=== PATIENT | female | born 1965 | race Caucasian/White ===

== ENCOUNTER 2016-09-09 19:27 | Emergency (ER) | payer OTHER ==
[~2016-09-09 19:27] MED LIST: CYCL5TAB PO; HYDR-971 PO
[2016-09-09 19:56] VITALS: BP 145/97
[2016-09-09] MEDS ORDERED: HYDROCODONE/APAP 5/325MG TABLET. PO ONE (21:30)
--- NOTE | 2016-09-09 21:57 | PHYS DOC ---
Past Medical History Past Medical History: Hypothyroid Additional Past Medical Histor: chronic shoulder issues Past Surgical History: Other Additional Past Surgical Histo: RIGHT AHD LEFT SHOULDER SURGERY, Alcohol Use: None Drug Use: None Adult General Chief Complaint Chief Complaint: SHOULDER INJURY HPI HPI Patient is a 51 year old female who presents with moderate left shoulder pain that began today. 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 She states she's had a previous rotator cuff issues injury and surgery Review of Systems Review of Systems Constitutional: Denies fever or chills [] Eyes: Denies change in visual acuity, redness, or eye pain [] Musculoskeletal: Left shoulder pain Integument: Denies rash or skin lesions [] Neurologic: Denies headache, focal weakness or sensory changes [] Endocrine: Denies polyuria or polydipsia [] Current Medications Current Medications Current Medications Medications (Trade) Dose Ordered Sig/Lauren Start Time Stop Time Status Last Admin Dose Admin Acetaminophen/ Hydrocodone Bitart (Lortab 5/325) 2 tab 1X ONCE 09/09/16 21:30 09/09/16 21:31 DC 09/09/16 21:53 2 TAB Allergies Allergies Allergies Coded Allergies Type Severity Reaction Last Updated Verified No Known Drug Allergies 01/04/15 No Physical Exam Physical Exam Constitutional: Well developed, well nourished, no acute distress, non-toxic appearance. [] Skin: Warm, dry, no erythema, no rash. [] Back: No tenderness, no CVA tenderness. [] Extremities: Left shoulder with no obvious deformity. Old healed surgical incisions noted on the left shoulder. Tenderness throughout the left shoulder on exam. Patient unable to take the left shoulder through any range of motion. + 2 left radial pulse. Cap refill less than 2 seconds the left upper extremity. Sensation intact to the left upper extremity. Neurologic: Alert and oriented X 3, normal motor function, normal sensory function, no focal deficits noted. [] Psychologic: Affect normal, judgement normal, mood normal. [] Current Patient Data Vital Signs Vital Signs Date Time Temp Pulse Resp B/P Pulse Ox O2 Delivery O2 Flow Rate FiO2 09/09/16 21:53 Room Air 09/09/16 19:56 97.9 96 20 145/97 100 97.9 EKG EKG [] Radiology/Procedures Radiology/Procedures [] Course & Med Decision Making Course & Med Decision Making Pertinent Labs and Imaging studies reviewed. (See chart for details) Patient is in the ED with left shoulder pain. Left shoulder x-ray as interpreted by Dr. Joseph was noted for slight AC separation. Patient was discharged with instructions to follow-up with her own orthopedic doctor on Monday. She goes to [facility] orthopedic [facility]. Dragon Disclaimer Dragon Disclaimer This electronic medical record was generated, in whole or in part, using a voice recognition dictation system. Departure Departure Impression: Primary Impression: AC separation Disposition: HOME, SELF-CARE Condition: STABLE Referrals: NAVDEEP SAPP (PCP) Follow-up with your primary care orthopedic doctor on Monday Patient Instructions: Shoulder Pain Additional Instructions: You were seen for shoulder pain. Please follow-up with your orthopedic doctor on Monday. Scripts Hydrocodone/Apap 5-325 (Keiser 5-325 Tablet)1 Each Tablet1-2 Tab PO Q4-6HRS #14 TAB Prov:BRENDA COFFEY APRN 09/09/16 Problem Qualifiers Primary Impression: AC separation Encounter type: initial encounter Laterality: left Qualified Code: S43.102A - Unspecified dislocation of left acromioclavicular joint, initial encounter BRENDA COFFEY APRN Sep 09, 2016 21:57
[2016-09-09] MEDS ORDERED: HYDR-971 PO (22:01)
--- NOTE | 2016-09-10 08:25 | RAD ---
Indication injury, pain. AP and Y views of the left shoulder were obtained. No prior imaging targeted to the shoulder is available. There is irregularity involving the distal clavicle having a chronic appearance and similar to an examination 03/06/2016. An acute bony finding is not seen. IMPRESSION: Chronic changes at the AC joint. No acute bony finding
== END 2016-09-09 22:04 | disposition home or self-care (01) ==
LOC: ER 19:27
DX: S43.102A Unspecified dislocation of left acromioclavicular joint, initial encounter (principal); E03.9 Hypothyroidism, unspecified; Z98.890 Other specified postprocedural states; W18.49XA Other slipping, tripping and stumbling without falling, initial encounter; Y93.89 Activity, other specified; Y92.89 Other specified places as the place of occurrence of the external cause; Y99.8 Other external cause status
CPT/HCPCS: 73030; 99284

== ENCOUNTER → 2016-10-25 | Outpatient (CLI) | payer OTHER ==
--- NOTE | 2016-10-25 10:05 | KCIC ---
PROCEDURE MRI cervical spine without contrast. HISTORY Cervicalgia, progressive left shoulder and scapula and neck pain for a few weeks TECHNIQUE Multiplanar, multi sequential non contrast MR imaging was performed of the cervical spine. COMPARISON None FINDINGS There is some motion degradation. Cervical vertebral body stature and AP alignment are maintained. Cervical cord caliber is within normal limits without focal signal abnormality. There is moderate to severe degenerative disc disease C6-7 and to a somewhat lesser degree at C5-C6 and minimally at C4-5. There is no significant abnormality of the cervical medullary junction. There is trace C6-7 endplate edema likely reactive/degenerative in etiology. Not fully included, there is moderate to severe mucosal thickening of the visualized sphenoid sinus. C2-3: Neural foramina and spinal canal are adequate. C3-C4: There is a posterior extrusion extending slightly above and below the intervertebral disc space, indentation upon the ventral thecal sac greatest centrally with narrowing of the central canal to 7-8 millimeters. There is focal effacement of ventral subarachnoid space centrally. Extrusion measures up to approximately 3 millimeters AP by 11 millimeters cc by 6 millimeters transverse. Neural foramina are adequate. C4-5: There is a shallow protrusion in the far right lateral recess. Central canal is borderline 10 millimeters, mild narrowing of the far right lateral recess. Neural foramina are adequate. C5-6: There is a broad posterior disc osteophyte complex and bulge. Central canal is minimally narrowed to 8-9 millimeters. There is uncovertebral degenerative change bilaterally. There is mild to moderate right and moderate to severe left neural foramina compromise. C6-7: There is minimal disc osteophyte complex and bulge. Central canal is minimally narrowed to 8-9 millimeters. There is uncovertebral degenerative change bilaterally. There is moderate to severe right and overall moderate left neural foramina compromise. C7-T1: Spinal canal and the neural foramina are adequate. IMPRESSION 1. There is mild spinal stenosis as described C3-4, C5-C6, C6-7, and mild narrowing of the far right lateral recess C4-5. 2. There is multilevel uncovertebral degenerative change which contributes to neural foramina compromise as stated most notable left greater than right at C5-C6 and right greater than left at C6-7. 3. There is multilevel cervical degenerative disc disease greatest C5-C6 and C6-7 and to a lesser degree at C4-5. There is spondylosis greatest at C5-C6 and C6-7. 4. Not fully included, there is moderate to severe mucosal thickening of the visualized sphenoid sinus. Electronically signed by: Darrion Sinclair MD (October 25, 2016 10:04:35)
--- NOTE | 2016-10-25 11:34 | KCIC ---
PROCEDURE MR of the left shoulder HISTORY Left shoulder pain. Prior surgery in 2013. TECHNIQUE Routine multiplanar sequences are obtained. COMPARISON None FINDINGS The acromioclavicular joint is postoperative. No acute findings in the area. There is mild motion degradation Thickening and hyperintense signal within the supraspinatus and infra spinatus tendons, compatible with tendinosis. No measurable rotator cuff tear.. No significant subdeltoid bursal effusion. Mild signal at the base of the posterosuperior labrum. Examination somewhat limited by the motion but this is a possible tear. No acute articular cartilage defect. No significant joint effusion. The biceps tendon is mildly thickened with signal compatible with tendinosis. Small nodular and tubular lesions identified within the proximal humerus may be vascular, but are thought to be benign. No aggressive bone destruction. No acute fracture. No acute soft tissue injury. No aggressive bone destruction or acute fracture. IMPRESSION 1. Rotator cuff tendinosis without measurable tear. 2. Suspect small tear of the posterosuperior labrum, but note there is motion degradation on the exam. Electronically signed by: Jesus Larose MD (October 25, 2016 11:33:51)
== END | disposition home or self-care (01) ==
LOC: KCIC MRI 08:15
PROVIDERS: ATTEND Nurse Practitioner Family
DX: M25.512 Pain in left shoulder (principal); M54.2 Cervicalgia
CPT/HCPCS: 72141; 73221

== ENCOUNTER 2017-02-18 23:32 | Emergency (ER) | payer OTHER ==
[~2017-02-18] VITALS: Ht 157.5 cm; Wt 65.8 kg
[2017-02-18 23:35] VITALS: BP 136/83
--- NOTE | 2017-02-19 00:44 | PHYS DOC ---
Past Medical History Past Medical History: Hypothyroid Additional Past Medical Histor: chronic shoulder issues, chronic back pain Past Surgical History: Other Additional Past Surgical Histo: Bilateral Shoulder Surgeries Alcohol Use: None Drug Use: None Adult General Chief Complaint Chief Complaint: BACK PAIN - NO INJURY HPI HPI Patient is a 51 year old female who presents with complaint of low back pain. The patient states that her symptoms started worsening earlier today. The patient states that she has had history of chronic back pain, however the patient states that she has not had pain like this in the past. The patient's history is somewhat confusing however is patient states that she has had an epidural in her low back for treatment of chronic back pain, however when asked what part of her back was affected, the patient states her cervical and upper thoracic spine. Patient states that she is having pain all throughout her back both upper and lower. Patient also states that pain radiates into both of her legs down to her feet. The patient has tried Lidoderm patch and has taken naproxen and Flexeril at home with no relief in symptoms. Patient states that she follows with pain management at [facility]. Patient states that she has Jean which she takes at home. Patient admitted that she also took this medication but has not gotten any relief of symptoms. Patient rates her pain currently is 10 out of 10. The patient states that she cannot sit at this time as it is causing worsening symptoms and is currently standing and holding her significant other during interview. The patient is also concerned that she may have a urinary tract infection as she feels that the pain is in "both kidneys." Patient denies loss of bowel or bladder control or saddle anesthesia. Review of Systems Review of Systems Constitutional: Denies fever or chills [] Eyes: Denies change in visual acuity, redness, or eye pain [] HENT: Denies nasal congestion or sore throat [] Respiratory: Denies cough or shortness of breath [] Cardiovascular: Denies chest pain or edema[] GI: Denies abdominal pain, nausea, vomiting, bloody stools or diarrhea [] : Denies dysuria or hematuria [] Musculoskeletal: Diffuse back pain[] Integument: Denies rash or skin lesions [] Neurologic: Denies headache, focal weakness or sensory changes [] Current Medications Current Medications Current Medications Medications (Trade) Dose Ordered Sig/Lauren Start Time Stop Time Status Last Admin Dose Admin Cefpodoxime Proxetil (Vantin) 200 mg 1X ONCE 02/19/17 02:30 02/19/17 02:31 DC 02/19/17 02:30 200 MG Dexamethasone Sodium Phosphate (Decadron) 16 mg 1X ONCE 02/19/17 01:00 02/19/17 01:01 DC 02/19/17 00:43 16 MG Hydromorphone HCl (Dilaudid) 1 mg 1X ONCE 02/19/17 01:00 02/19/17 01:01 DC 02/19/17 00:45 1 MG Allergies Allergies Allergies Coded Allergies Type Severity Reaction Last Updated Verified No Known Drug Allergies 01/04/15 No Physical Exam Physical Exam Constitutional: Alert, afebrile, appears in moderate to severe discomfort. [] HENT: Normocephalic, atraumatic, bilateral external ears normal, oropharynx moist, no oral exudates, nose normal. [] Eyes: PERRLA, EOMI, conjunctiva normal, no discharge. [] Neck: Normal range of motion, no tenderness, supple, no stridor. [] Cardiovascular:Heart rate regular rhythm, no murmur [] Lungs & Thorax: Bilateral breath sounds clear to auscultation [] Abdomen: Bowel sounds normal, soft, no tenderness, no masses, no pulsatile masses. [] Skin: Warm, dry, no erythema, no rash. [] Back: No midline tenderness, diffuse paraspinous muscle tenderness throughout thoracic and lumbar spine, tenderness to palpation over bilateral SI joints, patient remained standing and did not lay down to have straight leg test. [] Extremities: No tenderness, no cyanosis, no clubbing, ROM intact, no edema. [] Neurologic: Alert and oriented X 3, normal motor function, normal sensory function, no focal deficits noted. [] Current Patient Data Vital Signs Vital Signs Date Time Temp Pulse Resp B/P (MAP) Pulse Ox O2 Delivery O2 Flow Rate FiO2 02/18/17 23:35 97.8 87 20 100 Room Air 97.8 Lab Values Laboratory Tests Test 02/19/17 00:40 Urine Collection Type Unknown Urine Color Yellow Urine Clarity Turbid Urine pH 7.5 Urine Specific [place] 1.020 Urine Protein Negative mg/dL (NEG-TRACE) Urine Glucose (UA) Negative mg/dL (NEG) Urine Ketones (Stick) Negative mg/dL (NEG) Urine Blood Negative (NEG) Urine Nitrite Positive (NEG) Urine Bilirubin Negative (NEG) Urine Urobilinogen Dipstick 0.2 mg/dL (0.2 mg/dL) Urine Leukocyte Esterase Moderate (NEG) Urine RBC 3-5 /HPF (0-2) Urine WBC 1-4 /HPF (0-4) Urine Squamous Epithelial Cells Many /LPF Urine Amorphous Sediment Present /HPF Urine Bacteria Many /HPF (0-FEW) Microbiology 02/19/17 Urine Culture - Final, Complete 02/19/17 Urine Culture Result 1 (ANTHONY) - Final, Complete 02/19/17 Antimicrobic Susceptibility - Final, Complete EKG EKG Not performed[] Radiology/Procedures Radiology/Procedures Not performed[] Course & Med Decision Making Course & Med Decision Making Pertinent Labs and Imaging studies reviewed. (See chart for details) Patient was given IM Dilaudid in the emergency department with improvement in pain symptoms. UA shows evidence of urinary tract infection. Due to pain and in the flanks, patient will be treated for acute pyelonephritis. Patient's vital signs are normal at this time and patient does not appear toxic or septic. The patient will be started on Vantin twice a day with first dose given in the emergency department. Advised follow-up with primary doctor in 3 days for reevaluation and return to emergency department for any worsening symptoms. Patient was understanding and in agreement with treatment plan. Dragon Disclaimer Dragon Disclaimer This electronic medical record was generated, in whole or in part, using a voice recognition dictation system. Departure Departure Impression: Primary Impression: Pyelonephritis Additional Impression: Acute exacerbation of chronic low back pain Disposition: HOME, SELF-CARE Condition: IMPROVED Referrals: NAVDEEP SAPP (PCP) Patient Instructions: Chronic Back Pain, Pyelonephritis, Adult Additional Instructions: Follow-up in 3 days with your primary doctor for reevaluation. Return to emergency department for any worsening symptoms. Problem Qualifiers CYNDI CASANOVA MD Feb 19, 2017 00:44
[2017-02-19 00:55] LABS: BILIRUBIN,URINE NEGATIVE (NEG); GLUCOSE,URINE NEGATIVE (NEG); NITRITE,URINE POSITIVE (NEG); PH,URINE 7.5; PROTEIN,URINE NEGATIVE (NEG-TRACE); UROBILINOGEN,URINE 0.2 mg/dL (0.2 mg/dL)
[2017-02-19] MEDS ORDERED: DEXAMETHASONE SOD PHOS 20 MG/5 ML VIAL. IM ONE (01:00)
[2017-02-19] MEDS ORDERED: HYDROmorphone 2 MG/ML VIAL IM ONE (01:00)
[2017-02-19 01:10] LABS: BACTERIA,URINE MANY /HPF (0-FEW); SQUAMOUS EPITHELIAL CELL,UR MANY /LPF
[2017-02-19] MEDS ORDERED: CEFP200T PO (02:15)
[2017-02-19] MEDS ORDERED: CEFPODOXIME PROXETIL 100 MG TABLET. PO ONE (02:30)
[2017-02-21] MEDS ORDERED: LEVOTHYROXINE (03:59)
[2017-02-22] MEDS ORDERED: OXYC1TAB7 PO (11:23)
[2017-02-22] MEDS ORDERED: TIZA4TAB PO (11:46)
== END 2017-02-19 02:33 | disposition home or self-care (01) ==
LOC: ER 23:43
DX: G89.29 Other chronic pain (principal); N12 Tubulo-interstitial nephritis, not specified as acute or chronic; M54.5 Low back pain; E03.9 Hypothyroidism, unspecified
CPT/HCPCS: 81001; 87086; 96372; 99284; J1100; J1170

== ENCOUNTER → 2017-03-17 | Outpatient (CLI) | payer OTHER ==
[2017-02-22 14:35] VITALS: BP 115/71
[~2017-03-17] MED LIST changes: +CEFP200T PO; +LEVOTHYROXINE; +OXYC1TAB7 PO; +TIZA4TAB PO
--- NOTE | 2017-03-17 18:04 | KCIC ---
Bilateral digital screening mammograms: Reason for examination: Routine screening. Comparison is made to previous study dated 05/07/2014. The skin and nipples show no abnormalities. No abnormal axillary lymph nodes are seen. The breast parenchyma is extremely dense. (Breast density: Category D.) There appears to be some new nodularity posterior superiorly in the right breast on oblique view. These may represent intramammary lymph nodes. There is also suggestion of some nodularity at approximately the 9:00 position posteriorly in the right breast. Recommend further evaluation with additional cone compression views and ultrasound. There are no other dominant masses, suspicious calcifications or architectural distortion. Impression: New nodularity suggested in the right breast. Recommend further evaluation with additional cone compression views and ultrasound. Your patient's mammogram demonstrates that she has dense breast tissue (breast density category C or D), which could hide abnormalities, and if she has other risk factors for breast cancer that have been identified, she might benefit from supplemental screening tests that may be suggested by you as her ordering physician. Dense breast tissue, in and of itself, is a relatively common condition. Therefore, this information is not provided to cause undue concern, but rather to raise your awareness and to promote discussion with your patient regarding the presence of other risk factors, in addition to dense breast tissue. Your patient's mammography results will be sent to her. BI-RAD Category 0: Incomplete. Additional imaging is recommended. "Our facility is accredited by the [employer] Mammography Program." This patient's information has been entered into a reminder system for the patient to be notified with the results of her examination and a target date for the next mammogram. Electronically signed by: Kimberley Mata MD (03/17/2017 6:01 PM) [id number]
== END | disposition home or self-care (01) ==
LOC: KCIC MAMMO 13:19
PROVIDERS: ATTEND Nurse Practitioner Family
DX: Z12.31 Encounter for screening mammogram for malignant neoplasm of breast (principal)
CPT/HCPCS: G0202; 77067

== ENCOUNTER → 2017-04-26 | Outpatient (CLI) | payer OTHER ==
[2017-02-22 14:35] VITALS: BP 115/71
--- NOTE | 2017-04-26 09:51 | KCIC ---
History: asymmetric tissue density upper right breast on the March 08, 2017 mammogram. Technique: The following digital mammographic additional views were obtained: xcc view spot MLO . Computer aided detection was utilized with iCAD Second Look 7.2-H Comparison: May 07, 2014 Findings: There is at least one asymmetric tissue density which persists on the spot MLO view but is not well-seen on the cc view. The density does correspond with a small simple cyst on ultrasound. Impression: Probable small simple cyst causing the mammographic abnormality. Recommend a 6 month follow-up right mammogram to assess stability. BI-RADS Category 3: Probably Benign. These results were given to the patient in person. Patient information is entered into the [facility] reminder system using [employer] with a target due date for the next screening mammogram. The patient will receive a reminder. A mammogram does not have 100% sensitivity and therefore a negative imaging study should not delay further work up of a suspicious abnormality. "Our facility is accredited by the [employer] Mammography Program." Electronically signed by: David Lopez III, MD (04/26/2017 9:48 AM) [id number]
--- NOTE | 2017-04-26 09:52 | KCIC ---
Right breast diagnostic ultrasound HISTORY: Asymmetric tissue density on mammogram Sonographic examination of the upper outer right breast was performed and multiple static images were obtained. There is dense fibroglandular tissue. There is a simple cyst in the 10:00 right breast 2 cm nipple and measures 10 x 8 x 5 mm and corresponds with the mammographic abnormality. There is no suspicious findings. IMPRESSION: Simple cyst and dense fibroglandular tissue. Recommend a 6 month follow-up right mammogram to assess stability. These results were given to the patient in person. BI-RADS Category 3: Probably Benign. Electronically signed by: David Lopez III, MD (04/26/2017 9:49 AM) [id number]
== END | disposition home or self-care (01) ==
LOC: KCIC MAMMO 08:39
PROVIDERS: ATTEND Nurse Practitioner Family
DX: N60.01 Solitary cyst of right breast (principal); F17.200 Nicotine dependence, unspecified, uncomplicated
CPT/HCPCS: 76641; G0206; 77065

== ENCOUNTER 2017-12-20 19:56 | Emergency (ER) | payer OTHER ==
[2017-12-20 21:18] LABS: ANION GAP 3 (6-14); BLOOD UREA NITROGEN 9 mg/dL (7-20); CALCIUM 8.7 mg/dL (8.5-10.1); CARBON DIOXIDE 29 mmol/L (21-32); CHLORIDE 103 mmol/L (98-107); CREATININE 0.8 mg/dL (0.6-1.0); GLUCOSE 101 mg/dL (70-99); SODIUM 135 mmol/L (136-145)
[2017-12-20] MEDS: IV NORMAL SALINE 1000ML BAG 1,000 ML IV (21:21)
[2017-12-20] MEDS: ONDANSETRON PF 4 MG/2 ML VIAL. IV (21:21)
[2017-12-20 21:38] LABS: BILIRUBIN,URINE NEGATIVE (NEG); CLARITY,URINE CLOUDY; COLOR,URINE YELLOW; GLUCOSE,URINE NEGATIVE (NEG); NITRITE,URINE NEGATIVE (NEG); PH,URINE 6.5; PROTEIN,URINE NEGATIVE (NEG-TRACE)
[2017-12-20 21:49] LABS: BACTERIA,URINE MANY /HPF (0-FEW); RBC,URINE OCC /HPF (0-2); SQUAMOUS EPITHELIAL CELL,UR MANY /LPF
[2017-12-20] MEDS: IV NORMAL SALINE 500ML BAG 500 ML IV (22:46)
[2017-12-20] MEDS: diphenhydrAMINE 50 MG/ML VIAL IVP (22:46)
[2017-12-20] MEDS: PROCHLORPERAZINE 10 MG/2 ML VIAL. IV (22:47)
== END 2017-12-21 00:50 | disposition home or self-care (01) ==
LOC: ER 12-21 00:50
DX: R11.2 Nausea with vomiting, unspecified (principal); R19.7 Diarrhea, unspecified; G89.29 Other chronic pain; E03.9 Hypothyroidism, unspecified; Z98.51 Tubal ligation status
CPT/HCPCS: 36415; 80048; 81001; 96361; 96374; 96375; 99284; J0780; J1200; J2405; J7030; J7040

== ENCOUNTER 2020-08-25 14:46 | Inpatient (IN) | payer OTHER ==
[~2020-08-25] VITALS: Ht 157.5 cm; Wt 74.4 kg
[~2020-08-25 14:46] MED LIST changes: +HYDR-3164 PO; -HYDR-971 PO; +METO10TA81 PO; +NITR100C62 PO; -TIZA4TAB PO; +TIZA4TAB2 PO
[2020-08-25] MEDS ORDERED: VANCOMYCIN 1.75 GM in IV NORMAL SALINE 500ML BAG 500 ML IV ONE (16:00)
[2020-08-25] MEDS ORDERED: fentaNYL PF VIAL 100 MCG/2 ML VIAL IVP ONE (16:00)
[2020-08-25] MEDS ORDERED: IV NORMAL SALINE 1000ML BAG 1,000 ML IV SCH (16:00)
[2020-08-25] MEDS ORDERED: VANCOMYCIN PER PHARMACY MC ONE (16:00)
--- NOTE | 2020-08-25 16:15 | PHYS DOC ---
Past Medical History Past Medical History: Hypertension, Hypothyroid Additional Past Medical Histor: chronic shoulder issues, chronic back pain Past Surgical History: Tubal ligation, Other Additional Past Surgical Histo: Bilateral Shoulder Surgeries, WRIST SX, Endometrial ablation, elbow Smoking Status: Current Every Day Smoker Alcohol Use: None Drug Use: None General Adult EDM: Chief Complaint: HAND PROBLEM HPI: HPI: Patient is a 55 year old female who presents with for the last 2 to 3 days she has been trying to clear female locus plants and has gotten stuck several times bilateral hands. She now has severe pain and open weeping puncture wounds from the plant. Patient has 4 wounds to the left and one wound to the right hand. She states her hands are throbbing and rates the pain a 10 out of 10. Patient denies fever, numbness or tingling, focal weakness or skin color change, coolness of the extremity. She does state that she has been using peroxide and Neosporin to the areas. Patient has a history of hypertension and hypothyroidism. She is also a smoker. Review of Systems: Review of Systems: Constitutional: Denies fever or chills. [] Eyes: Denies change in visual acuity. [] HENT: Denies nasal congestion or sore throat. [] Respiratory: Denies cough or shortness of breath. [] Cardiovascular: Denies chest pain or edema. [] GI: Denies abdominal pain, nausea, vomiting, bloody stools or diarrhea. [] : Denies dysuria. [] Musculoskeletal: Denies back pain. +Bilateral hand joint pain. [] Integument: Denies rash. + 4 abscesses with erythema to left hand and one abscess with erythema and swelling to right hand [] Neurologic: Denies headache, focal weakness or sensory changes. [] Endocrine: Denies polyuria or polydipsia. [] Lymphatic: Denies swollen glands. [] Psychiatric: Denies depression or anxiety. [] Heart Score: C/O Chest Pain: N/A Risk Factors: Risk Factors: DM, Current or recent (<one month) smoker, HTN, HLP, family history of CAD, obesity. Risk Scores: Score 0 - 3: 2.5% MACE over next 6 weeks - Discharge Home Score 4 - 6: 20.3% MACE over next 6 weeks - Admit for Clinical Observation Score 7 - 10: 72.7% MACE over next 6 weeks - Early Invasive Strategies Current Medications: Current Medications Medications (Trade) Dose Ordered Sig/Lauren Start Time Stop Time Status Last Admin Dose Admin Fentanyl Citrate (Fentanyl 2ml Vial) 50 mcg 1X ONCE 08/25/20 16:00 08/25/20 16:01 DC Sodium Chloride 1,000 ml @ 1,000 mls/hr Q1H 08/25/20 16:00 08/25/20 16:59 Vancomycin HCl (Vanco Per Pharmacy) 1 each 1X ONCE 08/25/20 16:00 08/25/20 16:01 DC Vancomycin HCl 1.75 gm/Sodium Chloride 500 ml @ 250 mls/hr 1X ONCE 08/25/20 16:00 08/25/20 17:59 Allergies: Allergies: Allergies Coded Allergies Type Severity Reaction Last Updated Verified No Known Drug Allergies 01/04/15 No Physical Exam: PE: Constitutional: Well developed, well nourished, no acute distress, non-toxic appearance. [] HENT: Normocephalic, atraumatic, bilateral external ears normal, oropharynx moist, no oral exudates, nose normal. [] Eyes: PERRLA, EOMI, conjunctiva normal, no discharge. [] Neck: Normal range of motion, no tenderness, supple, no stridor. [] Cardiovascular:Heart rate regular rhythm, no murmur [] Lungs & Thorax: Bilateral breath sounds clear to auscultation [] Abdomen: Bowel sounds normal, soft, no tenderness, no masses, no pulsatile masses. [] Skin: Warm, dry, billateral hands erythema, no rash. Left hand with 4 open purulent draining reddened abscesses and right hand with 1 [] Back: No tenderness, no CVA tenderness. [] Extremities: Lateral hands tenderness, no cyanosis, no clubbing, right lateral hand ROM intact but limited due to swelling, 3+ edema. [] Neurologic: Alert and oriented X 3, normal motor function, normal sensory function, no focal deficits noted. [] Psychologic: Affect normal, judgement normal, mood normal. [] Current Patient Data: Vital Signs: Vital Signs Date Time Temp Pulse Resp B/P (MAP) Pulse Ox O2 Delivery O2 Flow Rate FiO2 08/25/20 15:10 98.2 95 18 135/83 (100) 98 Room Air 98.2 EKG: EKG: [] Radiology/Procedures: Radiology/Procedures: [] Impression: [facility] [address] [place] [address] IMAGING REPORT Signed PATIENT: BHAVANA DU ACCOUNT: [id number] : 1965 LOCATION: ER AGE: 55 SEX: F EXAM STATUS: REG ER ORD. PHYSICIAN: JONATHAN HAINES APRN REASON: hands swollen and infected PROCEDURE: CT UPPER EXTREMITY BILAT W/ CT EXTREMITY UPPER W CONT SARAH History: Reason: hands swollen and infected / Spl. Instructions: [id number] 75ML / History: Comparison: None. Technique: CT of bilateral distal upper extremities with intravenous contrast. Coronal and sagittal reconstructions were performed. Exposure: One or more of the following individualized dose reduction techniques were utilized for this examination: 1. Automated exposure control 2. Adjustment of the mA and/or kV according to patient size 3. Use of iterative reconstruction technique. Findings: Left upper extremity: Mild dorsal hand soft tissue swelling with overlying skin thickening. No loculated fluid collection to suggest abscess. Normal alignment. No fracture. Mild tendinous structures are grossly intact. Polyarticular distal interphalangeal degenerative changes. Right upper extremity: Normal alignment. No fracture. No loculated fluid collection to suggest abscess. Polyarticular distal phalangeal degenerative changes. Myotendinous structures are grossly intact. Impression: 1. Mild left dorsal hand soft tissue swelling with overlying skin thickening. No evidence of abscess. If persistent clinical concern in either extremity recommend targeted ultrasound or MRI to further evaluate. Electronically signed by: Grabiel Faria DO (08/25/2020 6:12 PM) [facility] DICTATED and SIGNED BY: GRABIEL FARIA DO DATE: 08/25/20 [id number] 0 Course & Med Decision Making: Course & Med Decision Making Pertinent Labs and Imaging studies reviewed. (See chart for details) See HPI. Bilateral hands are 2-3+ swollen including fingers. Patient can make a slight fist bilaterally but the swelling is limiting range of motion of her fingers. Bilateral hands are reddened with the right arm contain a red streak up the mid forearm. She is afebrile. Radial pulses are strong and present. Cap refill less than 2 seconds. Sensations are intact. Patient accepted by Dr Will. Patient is given fluids, Vancomycin and Zosyn. Cammie arteaga states that after the CT she began feeling throat tightness and nasal congestion. Uvula is midline and nonswollen. No hives or rash. Denies itching. No angio edema. [] Dragon Disclaimer: Dragon Disclaimer: This electronic medical record was generated, in whole or in part, using a voice recognition dictation system. Departure Departure Impression: Primary Impression: Cellulitis of hand Additional Impression: Wound infection Disposition: ADMITTED INPT THIS HOSP Admitting Physician: GABRIELE Condition: STABLE Referrals: NAVDEEP SAPP (PCP) JONATHAN HAINES APRN Aug 25, 2020 16:15
[2020-08-25 16:37] LABS: BASO # 0.1 x10^3/uL (0.0-0.2); BASO % 1 % (0-3); EOS # 0.1 x10^3/uL (0.0-0.7); EOS % 1 % (0-3); HEMATOCRIT 40.9 % (36.0-47.0); HEMOGLOBIN 14.1 g/dL (12.0-15.5); LYMPH # 1.6 x10^3/uL (1.0-4.8); LYMPH % 14 % (24-48); MEAN CORPUSCULAR HEMOGLOBIN 32 pg (25-35); MEAN CORPUSCULAR HGB CONC 34 g/dL (31-37); MEAN CORPUSCULAR VOLUME 94 fL (79-100); MONO % 8 % (0-9); NEUT # 8.9 x10^3/uL (1.8-7.7); NEUT % 76 % (31-73); PLATELET COUNT 314 x10^3/uL (140-400); RED BLOOD COUNT 4.36 x10^6/uL (3.50-5.40); RED CELL DISTRIBUTION WIDTH 12.5 % (11.5-14.5); WHITE BLOOD COUNT 11.7 x10^3/uL (4.0-11.0)
[2020-08-25] MEDS ORDERED: PIPERACILLIN/TAZOBACTAM 3.375 GM in IV NORMAL SALINE 50ML 50 ML IV ONE (16:45)
[2020-08-25 16:54] LABS: CALCIUM 9.2 mg/dL (8.5-10.1); CREATININE 0.9 mg/dL (0.6-1.0); GFR 64.8
[2020-08-25 17:00] LABS: ALBUMIN 3.7 g/dL (3.4-5.0); ALBUMIN/GLOBULIN RATIO 0.9 (1.0-1.7); C-REACTIVE PROTEIN 7.8 mg/L (0-3.3); TOTAL BILIRUBIN 0.5 mg/dL (0.2-1.0); TOTAL PROTEIN 7.8 g/dL (6.4-8.2)
[2020-08-25] MEDS ORDERED: IOHEXOL 300 MG/ML 100ML VIAL. IV ONE (17:00)
[2020-08-25] MEDS ORDERED: CONTRAST GIVEN. MC PRN (17:15)
[2020-08-25] MEDS ORDERED: MORPHINE SULFATE 4 MG/ML VIAL. IV ONE (17:45)
--- NOTE | 2020-08-25 18:15 | RAD ---
CT EXTREMITY UPPER W CONT SARAH History: Reason: hands swollen and infected / Spl. Instructions: [id number] 75ML / History: Comparison: None. Technique: CT of bilateral distal upper extremities with intravenous contrast. Coronal and sagittal r econstructions were performed. Exposure: One or more of the following individualized dose reduction techniques were utilized for thi s examination: 1. Automated exposure control 2. Adjustment of the mA and/or kV according to patient size 3. Use of iterative reconstruction technique. Findings: Left upper extremity: Mild dorsal hand soft tissue swelling with overlying skin thickening. No locula anusha fluid collection to suggest abscess. Normal alignment. No fracture. Mild tendinous structures are grossly intact. Polyarticular distal interphalangeal degenerative changes. Right upper extremity: Normal alignment. No fracture. No loculated fluid collection to suggest absces s. Polyarticular distal phalangeal degenerative changes. Myotendinous structures are grossly intact. Impression: 1. Mild left dorsal hand soft tissue swelling with overlying skin thickening. No evidence of abscess . If persistent clinical concern in either extremity recommend targeted ultrasound or MRI to further evaluate. Electronically signed by: Grabiel Michaud DO (08/25/2020 6:12 PM) [facility]
[2020-08-25] MEDS ORDERED: MORPHINE SULFATE 2 MG/ML VIAL. IV PRN (18:30)
[2020-08-25] MEDS ORDERED: ONDANSETRON PF 4 MG/2 ML VIAL. IV PRN (18:30)
[2020-08-25] MEDS ORDERED: diphenhydrAMINE 50 MG/ML VIAL IVP ONE (19:00)
[2020-08-25] MEDS ORDERED: methylPREDNISolone SOD SUCC PF 125 MG/2 ML VIAL. IV ONE (19:00)
--- NOTE | 2020-08-25 19:25 | PDOC1 ---
History and Physical Date of Service: DOS: DATE: 08/25/20 TIME: 19:09 Chief Complaint: Chief Complain: Hand infection History of Present Illness: HPI: Patient is a 55-year-old female with past medical history of hypertension, hypothyroidism, chronic shoulder and back pain who presents with bilateral hand infection. 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 Patient states that she got stuck from a low-dose needle plant several times on 3 days ago. She actually pulled out the needle on her left thumb last night. She has noticed redness, purulent drainage and weeping and redness worsening. She did not think much of it because she thought her swelling and redness would improve. She did use Neosporin and hydrogen peroxide to try to try to alleviate the redness. Patient has a total of 4 wounds in the left hand and one wound to the right hand. Pain is 10 out of 10. Denies fevers, numbness or tingling, loss of pulse, coldness to extremities or paleness. Past Medical/Surgical History: PMH/PSH: Past Medical History: Hypertension, Hypothyroid, chronic shoulder issues, chronic back pain Past Surgical History: Tubal ligation, Bilateral Shoulder Surgeries, WRIST SX, Endometrial ablation, elbow Allergies: Allergies: Coded Allergies: No Known Drug Allergies (Unverified , 01/04/15) Family History: Family History: Reviewed with no relevant findings Social History: Social History: Smoking Status: Current Every Day Smoker Alcohol Use: None Drug Use: None Current Medications: Current Medications Current Medications Vancomycin HCl (Vanco Per Pharmacy) 1 each 1X ONCE MC ; Start 08/25/20 at 16:00; Stop 08/25/20 at 16:01; Status DC Sodium Chloride 1,000 ml @ 1,000 mls/hr Q1H IV Last administered on 08/25/20at 16:30; Start 08/25/20 at 16:00; Stop 08/25/20 at 16:59; Status DC Fentanyl Citrate (Fentanyl 2ml Vial) 50 mcg 1X ONCE IVP Last administered on 08/25/20at 16:32; Start 08/25/20 at 16:00; Stop 08/25/20 at 16:01; Status DC Vancomycin HCl 1.75 gm/Sodium Chloride 500 ml @ 250 mls/hr 1X ONCE IV Last administered on 08/25/20at 16:33; Start 08/25/20 at 16:00; Stop 08/25/20 at 17:59; Status DC Piperacillin Sod/ Tazobactam Sod 3.375 gm/Sodium Chloride 50 ml @ 100 mls/hr 1X ONCE IV Last administered on 08/25/20at 18:22; Start 08/25/20 at 16:45; Stop 08/25/20 at 17:14; Status DC Iohexol (Omnipaque 300 Mg/ml) 75 ml 1X ONCE IV Last administered on 08/25/20at 17:26; Start 08/25/20 at 17:00; Stop 08/25/20 at 17:02; Status DC Info (CONTRAST GIVEN -- Rx MONITORING) 1 each PRN DAILY PRN MC SEE COMMENTS; Start 08/25/20 at 17:15; Stop 08/27/20 at 17:14 Morphine Sulfate (Morphine Sulfate) 4 mg 1X ONCE IV Last administered on 08/25/20at 18:40; Start 08/25/20 at 17:45; Stop 08/25/20 at 17:46; Status DC Ondansetron HCl (Zofran) 4 mg PRN Q8HRS PRN IV NAUSEA/VOMITING; Start 08/25/20 at 18:30; Stop 08/26/20 at 18:29 Morphine Sulfate (Morphine Sulfate) 2 mg PRN Q2HR PRN IV PAIN; Start 08/25/20 at 18:30; Stop 08/26/20 at 18:29 Methylprednisolone Sodium Succinate (SOLU-Medrol 125MG VIAL) 80 mg 1X ONCE IV Last administered on 08/25/20at 18:54; Start 08/25/20 at 19:00; Stop 08/25/20 at 19:01; Status DC Diphenhydramine HCl (Benadryl) 25 mg 1X ONCE IVP Last administered on 08/25/20at 18:54; Start 08/25/20 at 19:00; Stop 08/25/20 at 19:01; Status DC Active Scripts Active Macrobid 100 Mg Capsule (Nitrofurantoin Monohyd/M-Cryst) 100 Mg Capsule 1 Cap PO BID Reglan (Metoclopramide Hcl) 10 Mg Tablet 1 Tab PO TID PRN Tizanidine Hcl 4 Mg Tablet 4 Mg PO Q8HRS Oxycodone-Acetaminophen 5-325 (Oxycodone Hcl/Acetaminophen) 1 Each Tablet 1 Tab PO PRN Q4HRS PRN ROS: Review of Systems Review of System REVIEW OF SYSTEMS: GENERAL: Denies weakness SKIN: No bruising, hair changes or rashes. EYES: No blurred, double or loss of vision. NOSE AND THROAT: No history of nosebleeds, hoarseness or sore throat. HEART: No history of palpitations, chest pain or shortness of breath on exertion. LUNGS: Denies cough, hemoptysis, wheezing or shortness of breath. GASTROINTESTINAL: Denies changes in appetite, nausea, vomiting, diarrhea or constipation. GENITOURINARY: No history of frequency, urgency, hesitancy or nocturia. NEUROLOGIC: Denies history of numbness, tingling, or tremor. PSYCHIATRIC: No history of panic, anxiety or depression. ENDOCRINE: No history of heat or cold intolerance, polyuria or polydipsia. EXTREMITIES: Denies joint pain, pain on walking or stiffness. Physical Exam: Vital Signs: Vital Signs Date Time Temp Pulse Resp B/P (MAP) Pulse Ox O2 Delivery O2 Flow Rate FiO2 08/25/20 18:40 18 98 08/25/20 15:10 98.2 95 135/83 (100) Room Air 98.2 Physcial Exam: GEN: No apparent distress. Alert and oriented HEENT: Normal cephalic, atraumatic, external auditory canals are patent EYES: Extraocular muscles are intact, pupil are equally round and reactive to light and accommodation MUSCULOSKELETAL: Well developed , well nourished, good range of motion ENDOCRINE: No thyromegaly was palpated LYMPHATICS: No cervical chain or axillary nodes were noted HEMATOPOIETIC: No bruising NECK: Supple, no JVD, no thyromegaly was noted LUNGS: Clear to auscultation in all lung chen without rhonchi or wheezing HEART: RRR, S!, S2 present. Peripheral pulses intact, no obvious murmurs noted ABDOMEN: Soft, nontender. Positive bowel sounds, no organomegaly, normal bowel sounds EXTREMITIES: Without clubbing, cyanosis, or edema. Pedal pulses intact. Negative Homans sign NEUROLOGIC: Normal speech and tone. A&O x 3, moves all extremities, no obvious focal deficits PSYCHIATRIC: Normal affect, normal mood. Stable SKIN: No ulcerations or rashes, good skin turgor, no jaundice VASCULAR: Good capillary refill, neurovascular bundle appears to be intact Labs: Labs: Laboratory Tests Test 08/25/20 16:15 White Blood Count 11.7 x10^3/uL (4.0-11.0) Red Blood Count 4.36 x10^6/uL (3.50-5.40) Hemoglobin 14.1 g/dL (12.0-15.5) Hematocrit 40.9 % (36.0-47.0) Mean Corpuscular Volume 94 fL (79-100) Mean Corpuscular Hemoglobin 32 pg (25-35) Mean Corpuscular Hemoglobin Concent 34 g/dL (31-37) Red Cell Distribution Width 12.5 % (11.5-14.5) Platelet Count 314 x10^3/uL (140-400) Neutrophils (%) (Auto) 76 % (31-73) Lymphocytes (%) (Auto) 14 % (24-48) Monocytes (%) (Auto) 8 % (0-9) Eosinophils (%) (Auto) 1 % (0-3) Basophils (%) (Auto) 1 % (0-3) Neutrophils # (Auto) 8.9 x10^3/uL (1.8-7.7) Lymphocytes # (Auto) 1.6 x10^3/uL (1.0-4.8) Monocytes # (Auto) 1.0 x10^3/uL (0.0-1.1) Eosinophils # (Auto) 0.1 x10^3/uL (0.0-0.7) Basophils # (Auto) 0.1 x10^3/uL (0.0-0.2) Sodium Level 135 mmol/L (136-145) Potassium Level 4.0 mmol/L (3.5-5.1) Chloride Level 102 mmol/L (98-107) Carbon Dioxide Level 27 mmol/L (21-32) Anion Gap 6 (6-14) Blood Urea Nitrogen 14 mg/dL (7-20) Creatinine 0.9 mg/dL (0.6-1.0) Estimated GFR (Cockcroft-Gault) 64.8 BUN/Creatinine Ratio 16 (6-20) Glucose Level 95 mg/dL (70-99) Lactic Acid Level 0.7 mmol/L (0.4-2.0) Calcium Level 9.2 mg/dL (8.5-10.1) Total Bilirubin 0.5 mg/dL (0.2-1.0) Aspartate Amino Transf (AST/SGOT) 22 U/L (15-37) Alanine Aminotransferase (ALT/SGPT) 23 U/L (14-59) Alkaline Phosphatase 100 U/L (46-116) C-Reactive Protein, Quantitative 7.8 mg/L (0-3.3) Total Protein 7.8 g/dL (6.4-8.2) Albumin 3.7 g/dL (3.4-5.0) Albumin/Globulin Ratio 0.9 (1.0-1.7) Laboratory Tests Test 08/25/20 16:15 White Blood Count 11.7 x10^3/uL (4.0-11.0) Red Blood Count 4.36 x10^6/uL (3.50-5.40) Hemoglobin 14.1 g/dL (12.0-15.5) Hematocrit 40.9 % (36.0-47.0) Mean Corpuscular Volume 94 fL (79-100) Mean Corpuscular Hemoglobin 32 pg (25-35) Mean Corpuscular Hemoglobin Concent 34 g/dL (31-37) Red Cell Distribution Width 12.5 % (11.5-14.5) Platelet Count 314 x10^3/uL (140-400) Neutrophils (%) (Auto) 76 % (31-73) Lymphocytes (%) (Auto) 14 % (24-48) Monocytes (%) (Auto) 8 % (0-9) Eosinophils (%) (Auto) 1 % (0-3) Basophils (%) (Auto) 1 % (0-3) Neutrophils # (Auto) 8.9 x10^3/uL (1.8-7.7) Lymphocytes # (Auto) 1.6 x10^3/uL (1.0-4.8) Monocytes # (Auto) 1.0 x10^3/uL (0.0-1.1) Eosinophils # (Auto) 0.1 x10^3/uL (0.0-0.7) Basophils # (Auto) 0.1 x10^3/uL (0.0-0.2) Sodium Level 135 mmol/L (136-145) Potassium Level 4.0 mmol/L (3.5-5.1) Chloride Level 102 mmol/L (98-107) Carbon Dioxide Level 27 mmol/L (21-32) Anion Gap 6 (6-14) Blood Urea Nitrogen 14 mg/dL (7-20) Creatinine 0.9 mg/dL (0.6-1.0) Estimated GFR (Cockcroft-Gault) 64.8 BUN/Creatinine Ratio 16 (6-20) Glucose Level 95 mg/dL (70-99) Lactic Acid Level 0.7 mmol/L (0.4-2.0) Calcium Level 9.2 mg/dL (8.5-10.1) Total Bilirubin 0.5 mg/dL (0.2-1.0) Aspartate Amino Transf (AST/SGOT) 22 U/L (15-37) Alanine Aminotransferase (ALT/SGPT) 23 U/L (14-59) Alkaline Phosphatase 100 U/L (46-116) C-Reactive Protein, Quantitative 7.8 mg/L (0-3.3) Total Protein 7.8 g/dL (6.4-8.2) Albumin 3.7 g/dL (3.4-5.0) Albumin/Globulin Ratio 0.9 (1.0-1.7) Images: Images CT UPPER EXT BILATERAL Impression: 1. Mild left dorsal hand soft tissue swelling with overlying skin thickening. No evidence of abscess. If persistent clinical concern in either extremity recommend targeted ultrasound or MRI to further evaluate. Assessment/Plan Assessment/Plan Bilateral hand purulent cellulitis secondary to trauma Hyponatremia Tobacco misuse Admit to medicine for further management ID consult for antibiotic management Blood culture pending Continue empiric IV antibiotics Lovenox for DVT prophylaxis Regular diet Full code Discussed with RN and SW Disposition inpatient management as above Surrogate decision maker is the Justifications for Admission Other Justification TERA DEUTSCH MD Aug 25, 2020 19:25
[2020-08-25] MEDS ORDERED: ACETAMINOPHEN 325 MG TABLET. PO PRN (19:30)
[2020-08-25] MEDS ORDERED: DEXTROSE 50% 25 GM / 50ML DISP.SYRIN. IV PRN (19:30)
[2020-08-25] MEDS ORDERED: ONDANSETRON PF 4 MG/2 ML VIAL. IVP PRN (19:30)
[2020-08-25] MEDS ORDERED: PIP/TAZO PER PHARMACY MC PRN (19:30)
[2020-08-25] MEDS ORDERED: VANCOMYCIN PER PHARMACY MC PRN (19:30)
[2020-08-25] MEDS ORDERED: DOCUSATE SODIUM 100 MG CAPSULE. PO PRN (19:30)
[2020-08-25] MEDS ORDERED: SENNOSIDES 8.6 MG TABLET PO PRN (19:30)
[2020-08-25 21:00] VITALS: BP 116/70
--- NOTE | 2020-08-25 21:19 | NUR ---
Pharmacy Vancomycin Dosing Note S:Consulted to monitor and dose vancomycin started . O:BHAVANA DU is a 55 year old F with Cellulitis . Height: 5 feet, 2 inches Weight: 71.0 kg [place] Body Weight: 50.10 Adjusted Body Weight: 58.46 Dosing Weight: Actual Other Antibiotics: ZOSYN LABS: Last BUN: 14 Last Creatinine: 0.9 Creatinine Clearance: 64 mL/min Last WBC: 11.7 Last Procalcitonin: Tmax (past 24 hours): Microbiology: I/O: Drug Levels: Last level: on at Last dose given 08/25/20 at 1630 Vancomycin Dosing: Loading Dose: 1750 mg x1 Dosing Weight: Actual Target Trough: 10-20 A: Based on: WEIGHT, CRCL~62, INDICATION, P: 1. INITIATE Vancomycin 1000 mg IV q12h AFTER 1750 MG LOADING DOSE 2. Follow up Trough level on 08/27/20 at 1600 3. Pharmacy will continue to monitor, follow and adjust therapy as needed. ROSEMARIE CANCHOLA FORMERLY [facility], 08/25/20 [id number]
[2020-08-25] MEDS: IV NORMAL SALINE 1000ML BAG 1,000 ML IV SCH (22:25)
[2020-08-25] MEDS: PIPERACILLIN/TAZOBACTAM 3.375 GM in IV NORMAL SALINE 50ML 50 ML IV SCH (22:26)
[2020-08-25 23:00] VITALS: BP 117/58
[2020-08-26] MEDS ORDERED: LISI10TA16 PO (00:05)
[2020-08-26] MEDS ORDERED: HYDR-2767 PO (00:05)
[2020-08-26] MEDS ORDERED: CYCL10TA2 PO (00:05)
[2020-08-26] MEDS ORDERED: LEVO75TA5 PO (00:05)
[2020-08-26 03:00] VITALS: BP 102/57
[2020-08-26] MEDS ORDERED: VANCOMYCIN 1 GM in IV NORMAL SALINE 250ML 250 ML IV SCH (04:30)
[2020-08-26 05:25] LABS: BASO % 0 % (0-3); EOS % 0 % (0-3); HEMATOCRIT 39.5 % (36.0-47.0); HEMOGLOBIN 13.5 g/dL (12.0-15.5); LYMPH # 0.6 x10^3/uL (1.0-4.8); LYMPH % 7 % (24-48); MEAN CORPUSCULAR HEMOGLOBIN 32 pg (25-35); MEAN CORPUSCULAR HGB CONC 34 g/dL (31-37); MEAN CORPUSCULAR VOLUME 95 fL (79-100); MONO # 0.1 x10^3/uL (0.0-1.1); MONO % 1 % (0-9); NEUT # 7.1 x10^3/uL (1.8-7.7); NEUT % 91 % (31-73); PLATELET COUNT 309 x10^3/uL (140-400); RED BLOOD COUNT 4.17 x10^6/uL (3.50-5.40); RED CELL DISTRIBUTION WIDTH 12.6 % (11.5-14.5); WHITE BLOOD COUNT 7.8 x10^3/uL (4.0-11.0)
[2020-08-26] MEDS: PIPERACILLIN/TAZOBACTAM 3.375 GM in IV NORMAL SALINE 50ML 50 ML IV SCH ×2 (05:28→12:48)
[2020-08-26 05:43] LABS: CALCIUM 8.4 mg/dL (8.5-10.1); GFR 57.4; PHOSPHORUS 2.6 mg/dL (2.6-4.7); POTASSIUM 3.9 mmol/L (3.5-5.1)
[2020-08-26 07:00] VITALS: BP 110/63
[2020-08-26] MEDS: IV NORMAL SALINE 1000ML BAG 1,000 ML IV SCH (08:32)
--- NOTE | 2020-08-26 08:41 | PDOC ---
PROGRESS NOTES Date of Service: DATE: 08/26/20 TIME: 08:41 Chief Complaint Chief Complaint Images: Images CT UPPER EXT BILATERAL Impression: 1. Mild left dorsal hand soft tissue swelling with overlying skin thickening. No evidence of abscess. If persistent clinical concern in either extremity recommend targeted ultrasound or MRI to further evaluate. Assessment/Plan Assessment/Plan Bilateral hand purulent cellulitis secondary to trauma Hyponatremia Tobacco misuse diabetes plan Admit to medicine for further management ID consult for antibiotic management Blood culture pending Continue empiric IV antibiotics Lovenox for DVT prophylaxis Regular diet Full code Discussed with RN and SW Disposition inpatient management as above Surrogate decision maker is the d/w rn , ID SEEING, CULTURE OF DRAINAGE LEFT DORSAL HAND Justifications for Admission Justifications for Admission Other Justification cellulitis hand History of Present Illness History of Present Illness Chief Complaint: Chief Complain: Hand infection History of Present Illness: HPI: Patient is a 55-year-old female with past medical history of hypertension, hypothyroidism, chronic shoulder and back pain who presents with bilateral hand infection. 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 Patient states that she got stuck from a low-dose needle plant several times on 3 days ago. She actually pulled out the needle on her left thumb last night. She has noticed redness, purulent drainage and weeping and redness worsening. She did not think much of it because she thought her swelling and redness would improve. She did use Neosporin and hydrogen peroxide to try to try to alleviate the redness. Patient has a total of 4 wounds in the left hand and one wound to the right hand. Pain is 10 out of 10. Denies fevers, numbness or tingling, loss of pulse, coldness to extremities or paleness. Past Medical/Surgical History: PMH/PSH: Past Medical History: Hypertension, Hypothyroid, chronic shoulder issues, chronic back pain Past Surgical History: Tubal ligation, Bilateral Shoulder Surgeries, WRIST SX, Endometrial ablation, elbow Allergies: Allergies: Coded Allergies: No Known Drug Allergies (Unverified , 01/04/15) Family History: Family History: Reviewed with no relevant findings Social History: Social History: Smoking Status: Current Every Day Smoker Alcohol Use: None Drug Use: None 3-10 If persistent clinical concern in either extremity recommend targeted ultrasound or MRI to further evaluate. Vitals Vitals Vital Signs Date Time Temp Pulse Resp B/P (MAP) Pulse Ox O2 Delivery O2 Flow Rate FiO2 08/26/20 07:00 98.3 86 18 110/63 (79) 94 Room Air 98.3 Physical Exam Physical Exam Neck: Normal range of motion, no tenderness, supple, no stridor. [] Cardiovascular:Heart rate regular rhythm, no murmur [] Lungs & Thorax: Bilateral breath sounds clear to auscultation [] Abdomen: Bowel sounds normal, soft, no tenderness, no masses, no pulsatile masses. [] Skin: Warm, dry, billateral hands erythema, no rash. Left hand with 4 open purulent draining reddened abscesses right hand Back: No tenderness, no CVA tenderness. [] Extremities: Lateral hands tenderness, no cyanosis, no clubbing, right lateral hand ROM intact but limited due to swelling, 3+ edema. [] Neurologic: Alert and oriented X 3, normal motor function, normal sensory function, no focal deficits noted. [] Psychologic: Affect normal, judgement normal, mood normal. [] General: Alert, Oriented X3, Cooperative, No acute distress Heart: Regular rate, Normal S1, Normal S2 Lungs: Clear Abdomen: Normal bowel sounds, Soft, No tenderness Extremities: No cyanosis, Other (BOTH RICK WITH SOFT TISSUE SWELLING) Labs LABS CT EXTREMITY UPPER W CONT SARAH History: Reason: hands swollen and infected / Spl. Instructions: [id number] 75ML / History: Comparison: None. Technique: CT of bilateral distal upper extremities with intravenous contrast. Coronal and sagittal reconstructions were performed. Exposure: One or more of the following individualized dose reduction techniques were utilized for this examination: 1. Automated exposure control 2. Adjustment of the mA and/or kV according to patient size 3. Use of iterative reconstruction technique. Findings: Left upper extremity: Mild dorsal hand soft tissue swelling with overlying skin thickening. No loculated fluid collection to suggest abscess. Normal alignment. No fracture. Mild tendinous structures are grossly intact. Polyarticular distal interphalangeal degenerative changes. Right upper extremity: Normal alignment. No fracture. No loculated fluid collection to suggest abscess. Polyarticular distal phalangeal degenerative changes. Myotendinous structures are grossly intact. Impression: 1. Mild left dorsal hand soft tissue swelling with overlying skin thickening. No evidence of abscess. If persistent clinical concern in either extremity recommend targeted ultrasound or MRI to further evaluate. Electronically signed by: Grabiel Faria DO (08/25/2020 6:12 PM) [facility] DICTATED and SIGNED BY: GRABIEL FARIA DO Laboratory Tests Test 08/25/20 16:15 08/25/20 19:13 08/26/20 05:00 White Blood Count 11.7 x10^3/uL (4.0-11.0) 7.8 x10^3/uL (4.0-11.0) Red Blood Count 4.36 x10^6/uL (3.50-5.40) 4.17 x10^6/uL (3.50-5.40) Hemoglobin 14.1 g/dL (12.0-15.5) 13.5 g/dL (12.0-15.5) Hematocrit 40.9 % (36.0-47.0) 39.5 % (36.0-47.0) Mean Corpuscular Volume 94 fL (79-100) 95 fL (79-100) Mean Corpuscular Hemoglobin 32 pg (25-35) 32 pg (25-35) Mean Corpuscular Hemoglobin Concent 34 g/dL (31-37) 34 g/dL (31-37) Red Cell Distribution Width 12.5 % (11.5-14.5) 12.6 % (11.5-14.5) Platelet Count 314 x10^3/uL (140-400) 309 x10^3/uL (140-400) Neutrophils (%) (Auto) 76 % (31-73) 91 % (31-73) Lymphocytes (%) (Auto) 14 % (24-48) 7 % (24-48) Monocytes (%) (Auto) 8 % (0-9) 1 % (0-9) Eosinophils (%) (Auto) 1 % (0-3) 0 % (0-3) Basophils (%) (Auto) 1 % (0-3) 0 % (0-3) Neutrophils # (Auto) 8.9 x10^3/uL (1.8-7.7) 7.1 x10^3/uL (1.8-7.7) Lymphocytes # (Auto) 1.6 x10^3/uL (1.0-4.8) 0.6 x10^3/uL (1.0-4.8) Monocytes # (Auto) 1.0 x10^3/uL (0.0-1.1) 0.1 x10^3/uL (0.0-1.1) Eosinophils # (Auto) 0.1 x10^3/uL (0.0-0.7) 0.0 x10^3/uL (0.0-0.7) Basophils # (Auto) 0.1 x10^3/uL (0.0-0.2) 0.0 x10^3/uL (0.0-0.2) Sodium Level 135 mmol/L (136-145) 136 mmol/L (136-145) Potassium Level 4.0 mmol/L (3.5-5.1) 3.9 mmol/L (3.5-5.1) Chloride Level 102 mmol/L (98-107) 105 mmol/L (98-107) Carbon Dioxide Level 27 mmol/L (21-32) 25 mmol/L (21-32) Anion Gap 6 (6-14) 6 (6-14) Blood Urea Nitrogen 14 mg/dL (7-20) 13 mg/dL (7-20) Creatinine 0.9 mg/dL (0.6-1.0) 1.0 mg/dL (0.6-1.0) Estimated GFR (Cockcroft-Gault) 64.8 57.4 BUN/Creatinine Ratio 16 (6-20) Glucose Level 95 mg/dL (70-99) 222 mg/dL (70-99) Lactic Acid Level 0.7 mmol/L (0.4-2.0) Calcium Level 9.2 mg/dL (8.5-10.1) 8.4 mg/dL (8.5-10.1) Total Bilirubin 0.5 mg/dL (0.2-1.0) Aspartate Amino Transf (AST/SGOT) 22 U/L (15-37) Alanine Aminotransferase (ALT/SGPT) 23 U/L (14-59) Alkaline Phosphatase 100 U/L (46-116) Creatine Kinase 158 U/L (26-192) C-Reactive Protein, Quantitative 7.8 mg/L (0-3.3) Total Protein 7.8 g/dL (6.4-8.2) Albumin 3.7 g/dL (3.4-5.0) Albumin/Globulin Ratio 0.9 (1.0-1.7) SARS-CoV-2 Antigen (Rapid) Negative (NEGATIVE) Phosphorus Level 2.6 mg/dL (2.6-4.7) Magnesium Level 2.0 mg/dL (1.8-2.4) Assessment and Plan Assessmemt and Plan Problems Medical Problems: (1) Cellulitis of hand Status: Acute (2) Wound infection Status: Acute Comment Review of Relevant I have reviewed the following items krissy (where applicable) has been applied. Labs Laboratory Tests Test 08/25/20 16:15 08/25/20 19:13 08/26/20 05:00 White Blood Count 11.7 x10^3/uL (4.0-11.0) 7.8 x10^3/uL (4.0-11.0) Red Blood Count 4.36 x10^6/uL (3.50-5.40) 4.17 x10^6/uL (3.50-5.40) Hemoglobin 14.1 g/dL (12.0-15.5) 13.5 g/dL (12.0-15.5) Hematocrit 40.9 % (36.0-47.0) 39.5 % (36.0-47.0) Mean Corpuscular Volume 94 fL (79-100) 95 fL (79-100) Mean Corpuscular Hemoglobin 32 pg (25-35) 32 pg (25-35) Mean Corpuscular Hemoglobin Concent 34 g/dL (31-37) 34 g/dL (31-37) Red Cell Distribution Width 12.5 % (11.5-14.5) 12.6 % (11.5-14.5) Platelet Count 314 x10^3/uL (140-400) 309 x10^3/uL (140-400) Neutrophils (%) (Auto) 76 % (31-73) 91 % (31-73) Lymphocytes (%) (Auto) 14 % (24-48) 7 % (24-48) Monocytes (%) (Auto) 8 % (0-9) 1 % (0-9) Eosinophils (%) (Auto) 1 % (0-3) 0 % (0-3) Basophils (%) (Auto) 1 % (0-3) 0 % (0-3) Neutrophils # (Auto) 8.9 x10^3/uL (1.8-7.7) 7.1 x10^3/uL (1.8-7.7) Lymphocytes # (Auto) 1.6 x10^3/uL (1.0-4.8) 0.6 x10^3/uL (1.0-4.8) Monocytes # (Auto) 1.0 x10^3/uL (0.0-1.1) 0.1 x10^3/uL (0.0-1.1) Eosinophils # (Auto) 0.1 x10^3/uL (0.0-0.7) 0.0 x10^3/uL (0.0-0.7) Basophils # (Auto) 0.1 x10^3/uL (0.0-0.2) 0.0 x10^3/uL (0.0-0.2) Sodium Level 135 mmol/L (136-145) 136 mmol/L (136-145) Potassium Level 4.0 mmol/L (3.5-5.1) 3.9 mmol/L (3.5-5.1) Chloride Level 102 mmol/L (98-107) 105 mmol/L (98-107) Carbon Dioxide Level 27 mmol/L (21-32) 25 mmol/L (21-32) Anion Gap 6 (6-14) 6 (6-14) Blood Urea Nitrogen 14 mg/dL (7-20) 13 mg/dL (7-20) Creatinine 0.9 mg/dL (0.6-1.0) 1.0 mg/dL (0.6-1.0) Estimated GFR (Cockcroft-Gault) 64.8 57.4 BUN/Creatinine Ratio 16 (6-20) Glucose Level 95 mg/dL (70-99) 222 mg/dL (70-99) Lactic Acid Level 0.7 mmol/L (0.4-2.0) Calcium Level 9.2 mg/dL (8.5-10.1) 8.4 mg/dL (8.5-10.1) Total Bilirubin 0.5 mg/dL (0.2-1.0) Aspartate Amino Transf (AST/SGOT) 22 U/L (15-37) Alanine Aminotransferase (ALT/SGPT) 23 U/L (14-59) Alkaline Phosphatase 100 U/L (46-116) Creatine Kinase 158 U/L (26-192) C-Reactive Protein, Quantitative 7.8 mg/L (0-3.3) Total Protein 7.8 g/dL (6.4-8.2) Albumin 3.7 g/dL (3.4-5.0) Albumin/Globulin Ratio 0.9 (1.0-1.7) SARS-CoV-2 Antigen (Rapid) Negative (NEGATIVE) Phosphorus Level 2.6 mg/dL (2.6-4.7) Magnesium Level 2.0 mg/dL (1.8-2.4) Laboratory Tests Test 08/25/20 16:15 08/25/20 19:13 08/26/20 05:00 White Blood Count 11.7 x10^3/uL (4.0-11.0) 7.8 x10^3/uL (4.0-11.0) Red Blood Count 4.36 x10^6/uL (3.50-5.40) 4.17 x10^6/uL (3.50-5.40) Hemoglobin 14.1 g/dL (12.0-15.5) 13.5 g/dL (12.0-15.5) Hematocrit 40.9 % (36.0-47.0) 39.5 % (36.0-47.0) Mean Corpuscular Volume 94 fL (79-100) 95 fL (79-100) Mean Corpuscular Hemoglobin 32 pg (25-35) 32 pg (25-35) Mean Corpuscular Hemoglobin Concent 34 g/dL (31-37) 34 g/dL (31-37) Red Cell Distribution Width 12.5 % (11.5-14.5) 12.6 % (11.5-14.5) Platelet Count 314 x10^3/uL (140-400) 309 x10^3/uL (140-400) Neutrophils (%) (Auto) 76 % (31-73) 91 % (31-73) Lymphocytes (%) (Auto) 14 % (24-48) 7 % (24-48) Monocytes (%) (Auto) 8 % (0-9) 1 % (0-9) Eosinophils (%) (Auto) 1 % (0-3) 0 % (0-3) Basophils (%) (Auto) 1 % (0-3) 0 % (0-3) Neutrophils # (Auto) 8.9 x10^3/uL (1.8-7.7) 7.1 x10^3/uL (1.8-7.7) Lymphocytes # (Auto) 1.6 x10^3/uL (1.0-4.8) 0.6 x10^3/uL (1.0-4.8) Monocytes # (Auto) 1.0 x10^3/uL (0.0-1.1) 0.1 x10^3/uL (0.0-1.1) Eosinophils # (Auto) 0.1 x10^3/uL (0.0-0.7) 0.0 x10^3/uL (0.0-0.7) Basophils # (Auto) 0.1 x10^3/uL (0.0-0.2) 0.0 x10^3/uL (0.0-0.2) Sodium Level 135 mmol/L (136-145) 136 mmol/L (136-145) Potassium Level 4.0 mmol/L (3.5-5.1) 3.9 mmol/L (3.5-5.1) Chloride Level 102 mmol/L (98-107) 105 mmol/L (98-107) Carbon Dioxide Level 27 mmol/L (21-32) 25 mmol/L (21-32) Anion Gap 6 (6-14) 6 (6-14) Blood Urea Nitrogen 14 mg/dL (7-20) 13 mg/dL (7-20) Creatinine 0.9 mg/dL (0.6-1.0) 1.0 mg/dL (0.6-1.0) Estimated GFR (Cockcroft-Gault) 64.8 57.4 BUN/Creatinine Ratio 16 (6-20) Glucose Level 95 mg/dL (70-99) 222 mg/dL (70-99) Lactic Acid Level 0.7 mmol/L (0.4-2.0) Calcium Level 9.2 mg/dL (8.5-10.1) 8.4 mg/dL (8.5-10.1) Total Bilirubin 0.5 mg/dL (0.2-1.0) Aspartate Amino Transf (AST/SGOT) 22 U/L (15-37) Alanine Aminotransferase (ALT/SGPT) 23 U/L (14-59) Alkaline Phosphatase 100 U/L (46-116) Creatine Kinase 158 U/L (26-192) C-Reactive Protein, Quantitative 7.8 mg/L (0-3.3) Total Protein 7.8 g/dL (6.4-8.2) Albumin 3.7 g/dL (3.4-5.0) Albumin/Globulin Ratio 0.9 (1.0-1.7) SARS-CoV-2 Antigen (Rapid) Negative (NEGATIVE) Phosphorus Level 2.6 mg/dL (2.6-4.7) Magnesium Level 2.0 mg/dL (1.8-2.4) Medications Current Medications Vancomycin HCl (Vanco Per Pharmacy) 1 each 1X ONCE MC ; Start 08/25/20 at 16:00; Stop 08/25/20 at 16:01; Status DC Sodium Chloride 1,000 ml @ 1,000 mls/hr Q1H IV Last administered on 08/25/20at 16:30; Start 08/25/20 at 16:00; Stop 08/25/20 at 16:59; Status DC Fentanyl Citrate (Fentanyl 2ml Vial) 50 mcg 1X ONCE IVP Last administered on 08/25/20at 16:32; Start 08/25/20 at 16:00; Stop 08/25/20 at 16:01; Status DC Vancomycin HCl 1.75 gm/Sodium Chloride 500 ml @ 250 mls/hr 1X ONCE IV Last administered on 08/25/20at 16:33; Start 08/25/20 at 16:00; Stop 08/25/20 at 17:59; Status DC Piperacillin Sod/ Tazobactam Sod 3.375 gm/Sodium Chloride 50 ml @ 100 mls/hr 1X ONCE IV Last administered on 08/25/20at 18:22; Start 08/25/20 at 16:45; Stop 08/25/20 at 17:14; Status DC Iohexol (Omnipaque 300 Mg/ml) 75 ml 1X ONCE IV Last administered on 08/25/20at 17:26; Start 08/25/20 at 17:00; Stop 08/25/20 at 17:02; Status DC Info (CONTRAST GIVEN -- Rx MONITORING) 1 each PRN DAILY PRN MC SEE COMMENTS; Start 08/25/20 at 17:15; Stop 08/27/20 at 17:14 Morphine Sulfate (Morphine Sulfate) 4 mg 1X ONCE IV Last administered on 08/25/20at 18:40; Start 08/25/20 at 17:45; Stop 08/25/20 at 17:46; Status DC Ondansetron HCl (Zofran) 4 mg PRN Q8HRS PRN IV NAUSEA/VOMITING; Start 08/25/20 at 18:30; Stop 08/26/20 at 18:29 Morphine Sulfate (Morphine Sulfate) 2 mg PRN Q2HR PRN IV PAIN; Start 08/25/20 at 18:30; Stop 08/26/20 at 18:29 Methylprednisolone Sodium Succinate (SOLU-Medrol 125MG VIAL) 80 mg 1X ONCE IV Last administered on 08/25/20at 18:54; Start 08/25/20 at 19:00; Stop 08/25/20 at 19:01; Status DC Diphenhydramine HCl (Benadryl) 25 mg 1X ONCE IVP Last administered on 08/25/20at 18:54; Start 08/25/20 at 19:00; Stop 08/25/20 at 19:01; Status DC Piperacillin Sod/ Tazobactam Sod (Zosyn Per Pharmacy) 1 each PRN DAILY PRN MC SEE COMMENTS; Start 08/25/20 at 19:30 Vancomycin HCl (Vanco Per Pharmacy) 1 each PRN DAILY PRN MC SEE COMMENTS Last administered on 08/25/20at 21:18; Start 08/25/20 at 19:30 Sennosides (Senna) 17.2 mg PRN BID PRN PO CONSTIPATION; Start 08/25/20 at 19:30 Docusate Sodium (Colace) 100 mg PRN DAILY PRN PO HARD STOOLS; Start 08/25/20 at 19:30 Ondansetron HCl (Zofran) 4 mg PRN Q6HRS PRN IVP NAUSEA/VOMITING; Start 08/25/20 at 19:30 Dextrose (Dextrose 50%-Water Syringe) 12.5 gm PRN Q15MIN PRN IV SEE COMMENTS; Start 08/25/20 at 19:30 Sodium Chloride 1,000 ml @ 100 mls/hr Q10H IV Last administered on 08/26/20at 08:32; Start 08/25/20 at 19:30 Acetaminophen (Tylenol) 650 mg PRN Q4HRS PRN PO TEMP OVER 100.4F OR MILD PAIN; Start 08/25/20 at 19:30 Piperacillin Sod/ Tazobactam Sod 3.375 gm/Sodium Chloride 50 ml @ 100 mls/hr Q6HRS IV Last administered on 08/26/20at 05:28; Start 08/25/20 at 22:00 Vancomycin HCl 1 gm/Sodium Chloride 250 ml @ 250 mls/hr Q12H IV Last administered on 08/26/20at 06:05; Start 08/26/20 at 04:30 Vancomycin HCl (Vancomycin Trough Level) 1 each 1X ONCE MC ; Start 08/27/20 at 16:00; Stop 08/27/20 at 16:01 Acetaminophen/ Hydrocodone Bitart (Lortab 5/325) 1 tab PRN Q4HRS PRN PO PAIN; Start 08/26/20 at 08:45; Status UNV Active Scripts Active Reported Levothyroxine Sodium 75 Mcg Tablet 1 Tab PO DAILY Lisinopril 10 Mg Tablet 1 Tab PO DAILY Cyclobenzaprine Hcl 10 Mg Tablet 1 Tab PO TID Hydrocodone-Acetamin 10-325 mg (Hydrocodone/Acetaminophen) 1 Each Tablet 1-2 Tab PO PRN Q4-6HRS PRN Vitals/I & O Vital Sign - Last 24 Hours 08/25/20 08/25/20 08/25/20 08/25/20 15:10 18:40 21:00 21:20 Temp 98.2 98.7 98.2 98.7 Pulse 95 87 Resp 18 18 18 B/P (MAP) 135/83 (100) 116/70 (85) Pulse Ox 98 98 93 O2 Delivery Room Air Room Air Room Air 08/25/20 08/26/20 08/26/20 23:00 03:00 07:00 Temp 98.6 98.4 98.3 98.6 98.4 98.3 Pulse 58 82 86 Resp 18 18 18 B/P (MAP) 117/58 (77) 102/57 (72) 110/63 (79) Pulse Ox 93 92 94 O2 Delivery Room Air Room Air Room Air Intake and Output 08/25/20 08/25/20 08/26/20 15:00 23:00 07:00 Intake Total 50 ml 290 ml Balance 50 ml 290 ml Justicifation of Admission Dx: Justifications for Admission: Justification of Admission Dx: Yes Cellulitis: Cellulitis ANABELA SHAFFER MD Aug 26, 2020 08:41
[2020-08-26] MEDS ORDERED: HYDROcodone/APAP 5/325MG 1 TAB TABLET PO PRN (08:45)
[2020-08-26 08:58] LABS: % LYMPHS 15 % (24-48); % MONOS 2 % (0-10); % SEGS 83 % (35-66)
[2020-08-26 08:59] LABS: PLT ESTIMATE ADEQUATE (ADEQUATE)
--- NOTE | 2020-08-26 09:57 | NUR ---
SW following. Discussed with RN, pt from home, room air, cardiac diet, rapid COVID-19 negative. ID consulted. SW will continue to follow. SW will continue to follow.
[2020-08-26 11:00] VITALS: BP 116/68
[2020-08-26] MEDS ORDERED: DEXTROSE 50% 25 GM / 50ML DISP.SYRIN. IV PRN (11:00)
[2020-08-26] MEDS ORDERED: INSULIN LISPRO 300 UNITS/3 ML VIAL. SQ SCH (12:00)
[2020-08-26] MEDS ORDERED: DOXY-96 PO (13:04)
[2020-08-26] MEDS ORDERED: AMOX1TAB61 PO (13:05)
--- NOTE | 2020-08-26 13:33 | PDOC3 ---
Discharge Summary Date of Admission: Aug 25, 2020 Date of Discharge: Aug 26, 2020 Follow-Up: 3-5 days Admitting Diagnosis comment: HOSPITAL COURSE consults dr ALSTON COMPLICATIONS NONE D/C CONDITION GOOD PROGNOSIS GOOD WITH COMPLIANCE D/C MEDS SEE AUG F/U WITH DR ALSTON 2-3 DAYS, PCP 1 WEEK RETURN TO ER WITH WORSENING SYMPTOMS discharge dx Assessment/Plan Bilateral hand purulent cellulitis secondary to trauma Hyponatremia Tobacco misuse diabetes plan Admit to medicine for further management ID consult for antibiotic management Blood culture pending Continue empiric IV antibiotics Lovenox for DVT prophylaxis Regular diet Full code Discussed with RN and SW Disposition inpatient management as above Surrogate decision maker is the d/w rn , ID SEEING, CULTURE OF DRAINAGE LEFT DORSAL HAND Justifications for Admission Justifications for Admission Other Justification cellulitis hand History of Present Illness History of Present Illness Chief Complaint: Chief Complain: Hand infection History of Present Illness: HPI: Patient is a 55-year-old female with past medical history of hypertension, hypothyroidism, chronic shoulder and back pain who presents with bilateral hand infection. 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 Patient states that she got stuck from a low-dose needle plant several times on 3 days ago. She actually pulled out the needle on her left thumb last night. She has noticed redness, purulent drainage and weeping and redness worsening. She did not think much of it because she th ought her swelling and redness would improve. She did use Neosporin and hydrogen peroxide to try to try to alleviate the redness. Patient has a total of 4 wounds in the left hand and one wound to the right hand. Pain is 10 out of 10. Denies fevers, numbness or tingling, loss of pulse, coldness to extremities or paleness. Past Medical/Surgical History: PMH/PSH: Past Medical History: Hypertension, Hypothyroid, chronic shoulder issues, chronic back pain Past Surgical History: Tubal ligation, Bilateral Shoulder Surgeries, WRIST SX, Endometrial ablation, elbow Allergies: Allergies: Coded Allergies: No Known Drug Allergies (Unverified , 01/04/15) Family History: Family History: Reviewed with no relevant findings Social History: Social History: Smoking Status: Current Every Day Smoker Alcohol Use: None Drug Use: None 3-10 If persistent clinical concern in either extremity recommend targeted ultrasound or MRI to further evaluate. dr maria esther lewis with d/c today, augmentin and doxy D/C PLANNING 34 MIN Vitals Vitals Vital Signs Date Time Temp Pulse Resp B/P (MAP) Pulse Ox O2 Delivery O2 Flow Rate FiO2 08/26/20 07:00 98.3 86 18 110/63 (79) 94 Room Air 98.3 Physical Exam Physical Exam Neck: Normal range of motion, no tenderness, supple, no stridor. [] Cardiovascular:Heart rate regular rhythm, no murmur [] Lungs & Thorax: Bilateral breath sounds clear to auscultation [] Abdomen: Bowel sounds normal, soft, no tenderness, no masses, no pulsatile masses. [] Skin: Warm, dry, billateral hands erythema, no rash. Left hand with 4 open purulent draining reddened abscesses right hand Back: No tenderness, no CVA tenderness. [] Extremities: Lateral hands tenderness, no cyanosis, no clubbing, right lateral hand ROM intact but limited due to swelling, 3+ edema. [] Neurologic: Alert and oriented X 3, normal motor function, normal sensory function, no focal deficits noted. [] Psychologic: Affect normal, judgement normal, mood normal. [] General: Alert, Oriented X3, Cooperative, No acute distress Heart: Regular rate, Normal S1, Normal S2 Lungs: Clear Abdomen: Normal bowel sounds, Soft, No tenderness Extremities: No cyanosis, Other (BOTH RICK WITH SOFT TISSUE SWELLING) FINAL DIAGNOSIS Problems Medical Problems: (1) Cellulitis of hand Status: Acute (2) Wound infection Status: Acute Brief Hospital Course Ms. Campos is a 55 old [sex] who presented with [ CELLULITIS OF HANDS ] CONDITION AT DISCHARGE: Improved Discharge Medications Current Medications Vancomycin HCl (Vanco Per Pharmacy) 1 each 1X ONCE MC ; Start 08/25/20 at 16:00; Stop 08/25/20 at 16:01; Status DC Sodium Chloride 1,000 ml @ 1,000 mls/hr Q1H IV Last administered on 08/25/20at 16:30; Start 08/25/20 at 16:00; Stop 08/25/20 at 16:59; Status DC Fentanyl Citrate (Fentanyl 2ml Vial) 50 mcg 1X ONCE IVP Last administered on 08/25/20at 16:32; Start 08/25/20 at 16:00; Stop 08/25/20 at 16:01; Status DC Vancomycin HCl 1.75 gm/Sodium Chloride 500 ml @ 250 mls/hr 1X ONCE IV Last administered on 08/25/20at 16:33; Start 08/25/20 at 16:00; Stop 08/25/20 at 17:59; Status DC Piperacillin Sod/ Tazobactam Sod 3.375 gm/Sodium Chloride 50 ml @ 100 mls/hr 1X ONCE IV Last administered on 08/25/20at 18:22; Start 08/25/20 at 16:45; Stop 08/25/20 at 17:14; Status DC Iohexol (Omnipaque 300 Mg/ml) 75 ml 1X ONCE IV Last administered on 08/25/20at 17:26; Start 08/25/20 at 17:00; Stop 08/25/20 at 17:02; Status DC Info (CONTRAST GIVEN -- Rx MONITORING) 1 each PRN DAILY PRN MC SEE COMMENTS; Start 08/25/20 at 17:15; Stop 08/27/20 at 17:14 Morphine Sulfate (Morphine Sulfate) 4 mg 1X ONCE IV Last administered on 08/25/20at 18:40; Start 08/25/20 at 17:45; Stop 08/25/20 at 17:46; Status DC Ondansetron HCl (Zofran) 4 mg PRN Q8HRS PRN IV NAUSEA/VOMITING; Start 08/25/20 at 18:30; Stop 08/26/20 at 18:29 Morphine Sulfate (Morphine Sulfate) 2 mg PRN Q2HR PRN IV PAIN; Start 08/25/20 at 18:30; Stop 08/26/20 at 18:29 Methylprednisolone Sodium Succinate (SOLU-Medrol 125MG VIAL) 80 mg 1X ONCE IV Last administered on 08/25/20at 18:54; Start 08/25/20 at 19:00; Stop 08/25/20 at 19:01; Status DC Diphenhydramine HCl (Benadryl) 25 mg 1X ONCE IVP Last administered on 08/25/20at 18:54; Start 08/25/20 at 19:00; Stop 08/25/20 at 19:01; Status DC Piperacillin Sod/ Tazobactam Sod (Zosyn Per Pharmacy) 1 each PRN DAILY PRN MC SEE COMMENTS; Start 08/25/20 at 19:30 Vancomycin HCl (Vanco Per Pharmacy) 1 each PRN DAILY PRN MC SEE COMMENTS Last administered on 08/25/20at 21:18; Start 08/25/20 at 19:30 Sennosides (Senna) 17.2 mg PRN BID PRN PO CONSTIPATION; Start 08/25/20 at 19:30 Docusate Sodium (Colace) 100 mg PRN DAILY PRN PO HARD STOOLS; Start 08/25/20 at 19:30 Ondansetron HCl (Zofran) 4 mg PRN Q6HRS PRN IVP NAUSEA/VOMITING; Start 08/25/20 at 19:30 Dextrose (Dextrose 50%-Water Syringe) 12.5 gm PRN Q15MIN PRN IV SEE COMMENTS; Start 08/25/20 at 19:30 Sodium Chloride 1,000 ml @ 100 mls/hr Q10H IV Last administered on 08/26/20at 08:32; Start 08/25/20 at 19:30 Acetaminophen (Tylenol) 650 mg PRN Q4HRS PRN PO TEMP OVER 100.4F OR MILD PAIN; Start 08/25/20 at 19:30 Piperacillin Sod/ Tazobactam Sod 3.375 gm/Sodium Chloride 50 ml @ 100 mls/hr Q6HRS IV Last administered on 08/26/20at 12:48; Start 08/25/20 at 22:00 Vancomycin HCl 1 gm/Sodium Chloride 250 ml @ 250 mls/hr Q12H IV Last administered on 08/26/20at 06:05; Start 08/26/20 at 04:30 Vancomycin HCl (Vancomycin Trough Level) 1 each 1X ONCE MC ; Start 08/27/20 at 16:00; Stop 08/27/20 at 16:01 Acetaminophen/ Hydrocodone Bitart (Lortab 5/325) 1 tab PRN Q4HRS PRN PO MODERATE PAIN; Start 08/26/20 at 08:45 Insulin Human Lispro (HumaLOG) 0-5 UNITS TIDWMEALS SQ ; Start 08/26/20 at 12:00 Dextrose (Dextrose 50%-Water Syringe) 12.5 gm PRN Q15MIN PRN IV SEE COMMENTS; Start 08/26/20 at 11:00 Active Scripts Active Reported Augmentin 875-125 Tablet (Amoxicillin/Potassium Clav) 1 Each Tablet 1 Tab PO BID 7 Days Doxycycline Hyclate 100 Mg Tablet.dr 1 Tab PO BID 7 Days Levothyroxine Sodium 75 Mcg Tablet 1 Tab PO DAILY Lisinopril 10 Mg Tablet 1 Tab PO DAILY Cyclobenzaprine Hcl 10 Mg Tablet 1 Tab PO TID Hydrocodone-Acetamin 10-325 mg (Hydrocodone/Acetaminophen) 1 Each Tablet 1-2 Tab PO PRN Q4-6HRS PRN Vital Signs Vital Signs Date Time Temp Pulse Resp B/P (MAP) Pulse Ox O2 Delivery O2 Flow Rate FiO2 08/26/20 11:00 98.4 91 18 116/68 (84) 94 Room Air 98.4 Labs Laboratory Tests Test 08/25/20 16:15 08/25/20 19:13 08/26/20 05:00 White Blood Count 11.7 x10^3/uL (4.0-11.0) 7.8 x10^3/uL (4.0-11.0) Red Blood Count 4.36 x10^6/uL (3.50-5.40) 4.17 x10^6/uL (3.50-5.40) Hemoglobin 14.1 g/dL (12.0-15.5) 13.5 g/dL (12.0-15.5) Hematocrit 40.9 % (36.0-47.0) 39.5 % (36.0-47.0) Mean Corpuscular Volume 94 fL (79-100) 95 fL (79-100) Mean Corpuscular Hemoglobin 32 pg (25-35) 32 pg (25-35) Mean Corpuscular Hemoglobin Concent 34 g/dL (31-37) 34 g/dL (31-37) Red Cell Distribution Width 12.5 % (11.5-14.5) 12.6 % (11.5-14.5) Platelet Count 314 x10^3/uL (140-400) 309 x10^3/uL (140-400) Neutrophils (%) (Auto) 76 % (31-73) 91 % (31-73) Lymphocytes (%) (Auto) 14 % (24-48) 7 % (24-48) Monocytes (%) (Auto) 8 % (0-9) 1 % (0-9) Eosinophils (%) (Auto) 1 % (0-3) 0 % (0-3) Basophils (%) (Auto) 1 % (0-3) 0 % (0-3) Neutrophils # (Auto) 8.9 x10^3/uL (1.8-7.7) 7.1 x10^3/uL (1.8-7.7) Lymphocytes # (Auto) 1.6 x10^3/uL (1.0-4.8) 0.6 x10^3/uL (1.0-4.8) Monocytes # (Auto) 1.0 x10^3/uL (0.0-1.1) 0.1 x10^3/uL (0.0-1.1) Eosinophils # (Auto) 0.1 x10^3/uL (0.0-0.7) 0.0 x10^3/uL (0.0-0.7) Basophils # (Auto) 0.1 x10^3/uL (0.0-0.2) 0.0 x10^3/uL (0.0-0.2) Sodium Level 135 mmol/L (136-145) 136 mmol/L (136-145) Potassium Level 4.0 mmol/L (3.5-5.1) 3.9 mmol/L (3.5-5.1) Chloride Level 102 mmol/L (98-107) 105 mmol/L (98-107) Carbon Dioxide Level 27 mmol/L (21-32) 25 mmol/L (21-32) Anion Gap 6 (6-14) 6 (6-14) Blood Urea Nitrogen 14 mg/dL (7-20) 13 mg/dL (7-20) Creatinine 0.9 mg/dL (0.6-1.0) 1.0 mg/dL (0.6-1.0) Estimated GFR (Cockcroft-Gault) 64.8 57.4 BUN/Creatinine Ratio 16 (6-20) Glucose Level 95 mg/dL (70-99) 222 mg/dL (70-99) Lactic Acid Level 0.7 mmol/L (0.4-2.0) Calcium Level 9.2 mg/dL (8.5-10.1) 8.4 mg/dL (8.5-10.1) Total Bilirubin 0.5 mg/dL (0.2-1.0) Aspartate Amino Transf (AST/SGOT) 22 U/L (15-37) Alanine Aminotransferase (ALT/SGPT) 23 U/L (14-59) Alkaline Phosphatase 100 U/L (46-116) Creatine Kinase 158 U/L (26-192) C-Reactive Protein, Quantitative 7.8 mg/L (0-3.3) Total Protein 7.8 g/dL (6.4-8.2) Albumin 3.7 g/dL (3.4-5.0) Albumin/Globulin Ratio 0.9 (1.0-1.7) SARS-CoV-2 Antigen (Rapid) Negative (NEGATIVE) Segmented Neutrophils % 83 % (35-66) Lymphocytes % 15 % (24-48) Monocytes % 2 % (0-10) Platelet Estimate Adequate (ADEQUATE) Phosphorus Level 2.6 mg/dL (2.6-4.7) Magnesium Level 2.0 mg/dL (1.8-2.4) Laboratory Tests Test 08/25/20 16:15 08/25/20 19:13 08/26/20 05:00 White Blood Count 11.7 x10^3/uL (4.0-11.0) 7.8 x10^3/uL (4.0-11.0) Red Blood Count 4.36 x10^6/uL (3.50-5.40) 4.17 x10^6/uL (3.50-5.40) Hemoglobin 14.1 g/dL (12.0-15.5) 13.5 g/dL (12.0-15.5) Hematocrit 40.9 % (36.0-47.0) 39.5 % (36.0-47.0) Mean Corpuscular Volume 94 fL (79-100) 95 fL (79-100) Mean Corpuscular Hemoglobin 32 pg (25-35) 32 pg (25-35) Mean Corpuscular Hemoglobin Concent 34 g/dL (31-37) 34 g/dL (31-37) Red Cell Distribution Width 12.5 % (11.5-14.5) 12.6 % (11.5-14.5) Platelet Count 314 x10^3/uL (140-400) 309 x10^3/uL (140-400) Neutrophils (%) (Auto) 76 % (31-73) 91 % (31-73) Lymphocytes (%) (Auto) 14 % (24-48) 7 % (24-48) Monocytes (%) (Auto) 8 % (0-9) 1 % (0-9) Eosinophils (%) (Auto) 1 % (0-3) 0 % (0-3) Basophils (%) (Auto) 1 % (0-3) 0 % (0-3) Neutrophils # (Auto) 8.9 x10^3/uL (1.8-7.7) 7.1 x10^3/uL (1.8-7.7) Lymphocytes # (Auto) 1.6 x10^3/uL (1.0-4.8) 0.6 x10^3/uL (1.0-4.8) Monocytes # (Auto) 1.0 x10^3/uL (0.0-1.1) 0.1 x10^3/uL (0.0-1.1) Eosinophils # (Auto) 0.1 x10^3/uL (0.0-0.7) 0.0 x10^3/uL (0.0-0.7) Basophils # (Auto) 0.1 x10^3/uL (0.0-0.2) 0.0 x10^3/uL (0.0-0.2) Sodium Level 135 mmol/L (136-145) 136 mmol/L (136-145) Potassium Level 4.0 mmol/L (3.5-5.1) 3.9 mmol/L (3.5-5.1) Chloride Level 102 mmol/L (98-107) 105 mmol/L (98-107) Carbon Dioxide Level 27 mmol/L (21-32) 25 mmol/L (21-32) Anion Gap 6 (6-14) 6 (6-14) Blood Urea Nitrogen 14 mg/dL (7-20) 13 mg/dL (7-20) Creatinine 0.9 mg/dL (0.6-1.0) 1.0 mg/dL (0.6-1.0) Estimated GFR (Cockcroft-Gault) 64.8 57.4 BUN/Creatinine Ratio 16 (6-20) Glucose Level 95 mg/dL (70-99) 222 mg/dL (70-99) Lactic Acid Level 0.7 mmol/L (0.4-2.0) Calcium Level 9.2 mg/dL (8.5-10.1) 8.4 mg/dL (8.5-10.1) Total Bilirubin 0.5 mg/dL (0.2-1.0) Aspartate Amino Transf (AST/SGOT) 22 U/L (15-37) Alanine Aminotransferase (ALT/SGPT) 23 U/L (14-59) Alkaline Phosphatase 100 U/L (46-116) Creatine Kinase 158 U/L (26-192) C-Reactive Protein, Quantitative 7.8 mg/L (0-3.3) Total Protein 7.8 g/dL (6.4-8.2) Albumin 3.7 g/dL (3.4-5.0) Albumin/Globulin Ratio 0.9 (1.0-1.7) SARS-CoV-2 Antigen (Rapid) Negative (NEGATIVE) Segmented Neutrophils % 83 % (35-66) Lymphocytes % 15 % (24-48) Monocytes % 2 % (0-10) Platelet Estimate Adequate (ADEQUATE) Phosphorus Level 2.6 mg/dL (2.6-4.7) Magnesium Level 2.0 mg/dL (1.8-2.4) Allergies Allergies Coded Allergies Type Severity Reaction Last Updated Verified No Known Drug Allergies 01/04/15 No Disposition/Orders: D/C to Home Justicifation of Admission Dx: Justifications for Admission: Justification of Admission Dx: Yes Cellulitis: Cellulitis ANABELA SHAFFER MD Aug 26, 2020 13:33
[2020-08-26] MEDS ORDERED: DOCU-153 PO (13:34)
--- NOTE | 2020-08-26 13:37 | DISCH ---
DISCHARGE INSTRUCTIONS Condition on Discharge Condition on Discharge: Stable Activity After Discharge Activity Instructions for Disc: Activity as tolerated Lifting Instructions after Dis: No heavy lifting Driving Instructions after Dis: Do not drive today Diet after Discharge Diet after Discharge: Regular Checks after Discharge Checks after discharge: Check blood press - daily Contacting the DRAd after DC Call your doctor for: If your condition worsens Follow-Up Follow up with: DR ALSTON BY PHONE 3 DAYS,, PCP IN ONE WEEK Treatment/Equipment after DC Adaptive Equipment Issued: None ANABELA SHAFFER MD Aug 26, 2020 13:37
--- NOTE | 2020-08-26 16:10 | NUR ---
Patient discharged to daughter in stable condition. Patient verbalized understanding of discharge instructions, received copy. Prescriptions were called to pt pharmacy [facility] [address] [place] [address] Ave. [phone]. Patient will call Dr Farah in 3 days (may call at 2 days as well) for culture report and any adjustment in medications.
--- NOTE | 2020-08-26 21:16 | CONS ---
DATE OF CONSULTATION: 08/26/2020 REQUESTING PHYSICIAN: Dr. Will. REASON FOR CONSULTATION: Hand cellulitis or infection. HISTORY OF PRESENT ILLNESS: This is a 55-year-old female who was working in the yard and cleaning out the farm. The patient got stuck with a needle from some sort of tree. This happened about 4 or 5 days ago. The patient started having some swelling and couple of areas of skin breakdown on the right hand as well as on the left hand, hence she came in. The patient denies any fever, denies any nausea, vomiting, diarrhea. Denies any chest pain, shortness of breath, abdominal pain, urinary symptoms or bowel symptoms. The patient was put on antibiotics and consult has been requested. The patient did have white count of 11.7. PAST MEDICAL HISTORY: Positive for hypertension, arthritis, rotator cuff surgery, carpal tunnel surgery, hypothyroidism. SOCIAL HISTORY: Positive for smoking. No alcohol use or drug use. ALLERGIES: No known drug allergies. CURRENT MEDICATIONS: Reviewed. REVIEW OF SYSTEMS: As in HPI. All other systems reviewed are negative. PHYSICAL EXAMINATION: GENERAL: Alert, oriented female, not in distress. VITAL SIGNS: Stable, afebrile. HEENT: NAD. NECK: Supple, no JVP, no lymphadenopathy. LUNGS: Clear. HEART: S1, S2 regular. ABDOMEN: Benign. EXTREMITIES: No edema, cyanosis. SKIN: Unremarkable except both the hands are swollen. The patient has a couple of small superficial skin and soft tissue infection in the right hand and one on the left dorsal hand. From dorsal hand purulence, pus was coming out. I cultured that on the left hand. Right hand wound was cultured in the ER. That original culture from yesterday showing gram-positive cocci. Further identification is pending. Upper extremity CT was unremarkable. IMPRESSION: 1. Bilateral hand injury with the thorn with skin breakdown in about 2 areas on the right hand, one area on the left hand with minor cellulitis. 2. Hypertension. 3. Leukocytosis. RECOMMENDATIONS: The patient to continue antibiotics, vancomycin and Zosyn for the time being. We will follow the cultures and continue to adjust. Thank you very much, Dr. Will, for giving me the opportunity to participate in this patient's care. MARIAELENA ALSTON MD DR: BELKYS/charisma JOB#: [id number] / [id number]
== END 2020-08-26 16:10 | disposition home or self-care (01) | DRG 603 ==
LOC: ER 14:46 → ED HOLD 17:52 → 4 NORTH 20:46
PROVIDERS: ADMIT Internal Medicine; ATTEND Internal Medicine
DX: L03.113 Cellulitis of right upper limb (principal); E87.1 Hypo-osmolality and hyponatremia; L02.511 Cutaneous abscess of right hand; E03.9 Hypothyroidism, unspecified; Z98.51 Tubal ligation status; F17.200 Nicotine dependence, unspecified, uncomplicated; I10 Essential (primary) hypertension; E11.9 Type 2 diabetes mellitus without complications; G89.29 Other chronic pain; M19.90 Unspecified osteoarthritis, unspecified site; Z20.822 Contact with and (suspected) exposure to COVID-19; D72.829 Elevated white blood cell count, unspecified; L03.114 Cellulitis of left upper limb
CPT/HCPCS: 36415; 80048; 80053; 82550; 83605; 83735; 84100; 85007; 85025; 86140; 87040; 87071; 87075; 87426; 96365; 96367; 96375; J1200; J1815; J2270; J2543; J2930; J3010; J3370; J7030; J7040; J7050; Q9967; U0003; 73201-50; 99285-25; G0378